=== PATIENT | female | born 1960 | race Two or more races ===

== ENCOUNTER 2017-03-18 10:14 | Emergency (ER) | payer MEDICAID, OTHER ==
[~2017-03-18] VITALS: Ht 157.5 cm; Wt 68.0 kg
[2017-03-18 14:00] VITALS: BP 124/72
== END 2017-03-18 14:07 | disposition home or self-care (01) ==
LOC: ER 10:14
DX: S80.02XA Contusion of left knee, initial encounter (principal); I10 Essential (primary) hypertension; W19.XXXA Unspecified fall, initial encounter; Y93.89 Activity, other specified; Y99.8 Other external cause status; Y92.89 Other specified places as the place of occurrence of the external cause
CPT/HCPCS: 73700

== ENCOUNTER 2024-02-15 10:31 | Emergency (ER) | payer MEDICAID ==
[~2024-02-15] VITALS: Ht 157.5 cm; Wt 63.5 kg
[2024-02-15 10:54] LABS: Basophils # (auto) 0.1 10 ^3/uL (0-0.2); Basophils % (auto) 1.1 % (0.0-2.0); Eosinophils # (auto) 0.9 10 ^3/uL (0-0.8); Hematocrit 41.7 % (36.0-46.0); Hemoglobin 13.4 g/dL (12.2-16.2); Lymphocytes # (auto) 1.7 10 ^3/uL (0.4-5.4); Lymphocytes % (auto) 22.2 % (10.0-50.0); Mean Corpuscular Hemoglobin 28.7 pg (28.0-32.0); Mean Corpuscular Hgb Conc. 32.2 g/dL (32.0-36.0); Mean Corpuscular Volume 89.2 fL (80.0-100.0); Monocytes # (auto) 0.5 10 ^3/uL (0-1.3); Monocytes % (auto) 6.1 % (0.0-12.0); Neutrophils # (auto) 4.6 10 ^3/uL (1.6-8.6); Neutrophils % (auto) 59.6 % (37.0-80.0); Red Blood Cells 4.67 10^6/uL (4.0-5.20); Red Cell Distribution Width 14.3 % (11.8-14.3); White Blood Cell 7.7 10^3/uL (4.4-10.8)
[2024-02-15 11:01] LABS: Chloride 104 mmol/L (98-107); Potassium 4.5 mmol/L (3.5-5.1); Sodium 140 mmol/L (136-145)
[2024-02-15 11:02] LABS: Anion Gap 4 (5-15); Carbon Dioxide 32 mmol/L (20-30); Urine Bacteria FEW /hpf (None Seen); Urine Blood 1+ /uL (Negative); Urine Clarity Clear (Clear); Urine Color Yellow (Yellow); Urine Protein, UAD Negative (Negative); Urine Specific Gravity 1.014 (1.001-1.035); Urine Urobilinogen Normal (Negative); Urine WBC 11 /hpf (0 - 5); Urine pH 6.5 (5.0-8.0)
[2024-02-15 11:03] LABS: Calcium 9.7 mg/dL (8.5-10.1)
[2024-02-15 11:08] LABS: BUN/Creatinine Ratio 16.3 (10.0-20.0); Blood Urea Nitrogen 13 mg/dL (9-23); Glucose 84 mg/dL (74-106)
[2024-02-15] MEDS: predniSONE 20 MG TAB PO ONE (11:35)
[2024-02-15] MEDS: guaiFENesin-DM 100/10mg/5ml SYR PO ONE (11:35)
[2024-02-15] MEDS: levoFLOXacin 500 MG TAB PO ONE (11:35)
[2024-02-15] MEDS: ACETAMINOPHEN 325 MG TAB PO ONE (11:36)
[2024-02-15 11:37] VITALS: PULSE 71; RESP 20; O2SAT 96
[2024-02-15] MEDS: IPRATROPIUM BROM 0.5 MG/2.5ML INH SOL NEB ONE (11:37)
[2024-02-15] MEDS: ALBUTEROL SULF 2.5 MG/0.5ML(0.5%) NEB SOLN NEB ONE (11:38)
[2024-02-15 11:43] VITALS: PULSE 76; RESP 20; O2SAT 100
[2024-02-15 12:46] VITALS: TEMP 97.9
[2024-02-15 13:36] LABS: Rapid Influenza A Negative (Negative); Rapid Influenza B Negative (Negative)
[2024-02-15 13:46] LABS: COVID19 ANTIGEN SOFIA FIA NEGATIVE (NEGATIVE)
[2024-02-15] MEDS ORDERED: PROM1SOL4 PO (14:15)
[2024-02-15] MEDS ORDERED: ACET-1304 PO (14:15)
[2024-02-15] MEDS ORDERED: PRED20TA2 PO (14:15)
[2024-02-15] MEDS ORDERED: LEVO500T91 PO (14:15)
[2024-02-15 14:40] VITALS: BP 146/49; PULSE 75; RESP 18; O2SAT 95
== END 2024-02-15 14:41 | disposition home or self-care (01) ==
LOC: ER 10:31
DX: J45.909 Unspecified asthma, uncomplicated (principal); H66.91 Otitis media, unspecified, right ear; I10 Essential (primary) hypertension; Z20.822 Contact with and (suspected) exposure to COVID-19
CPT/HCPCS: 36415; 71045; 80048; 81001; 83880; 84484; 85025; 85379; 87426; 87804; 94640; 99284; J7512; J7644